=== PATIENT | female | born 1950 | race African-American/Black ===

== ENCOUNTER 2016-07-15 12:20 | Emergency (ER) | payer OTHER ==
[~2016-07-15] VITALS: Ht 162.6 cm; Wt 92.1 kg
[2016-07-15] MEDS ORDERED: ATENOLOL25 MG ORAL (12:34)
[2016-07-15] MEDS ORDERED: GLYBURIDE1.25 MG PO (12:35)
[2016-07-15] MEDS ORDERED: METFORMIN HCL500 M1 ORAL (12:35)
--- NOTE | 2016-07-15 13:07 | Emergency Room Report ---
History of Present Illness General Chief Complaint: Skin Rash/Abscess Source: Patient Present Illness HPI 66-year-old female presents emergency department complaining of pain, swelling and tenderness to the right lower jaw/gums x3 days. Patient denies trauma or fall patient denies fevers or chills. Patient denies sore throat or recent upper respiratory illness. Patient denies pain under the tongue. She denies recent dental procedures. She denies taking blood thinning medications. Denies CP, Palpitations, LOC, AMS, dizziness, Changes in Vision, Sensation, paresthesias, or a sudden severe headache. Allergies: Coded Allergies: No Known Allergies (Unverified , 07/15/16) Patient History Past Medical History: see triage record Past Surgical History: none Pertinent Family History: none Now: No Immunizations: UTD Reviewed Nursing Documentation: PMH: Agreed, PSxH: Agreed Nursing Documentation-PMH Past Medical History: No History, Except For Hx Hypertension: Yes Hx Diabetes: Yes Review of Systems All Other Systems: negative except mentioned in HPI Physical Exam Vital Signs Date Time Temp Pulse Resp B/P Pulse Ox O2 Delivery O2 Flow Rate FiO2 07/15/16 12:30 98.2 79 16 129/93 95 Room Air Sp02 EP Interpretation: reviewed, normal General Appearance: no apparent distress, alert, GCS 15, non-toxic Head: normocephalic, atraumatic Eyes: bilateral eye PERRL, bilateral eye normal inspection ENT: hearing grossly normal, normal pharynx, no angioedema, normal voice, other - right lower gum line is swollen, erythema and palpable fluctuance just below tooth number 30. negative trismus, negative sublingual swelling/ttp. Neck: full range of motion, supple/symm/no masses Respiratory: lungs clear, normal breath sounds, speaking full sentences Cardiovascular #1: regular rate, rhythm, no edema Musculoskeletal: back normal, gait/station normal, normal range of motion, non- tender Neurologic: alert, oriented x3, responsive, motor strength/tone normal, sensory intact, speech normal Psychiatric: judgement/insight normal, memory normal, mood/affect normal Skin: normal color, no rash, warm/dry, well hydrated Lymphatic: no adenopathy Procedures Incision and Drainage Incision and Drainage : Consent: Verbal Site: right lower gum line just below tooth number 30 Blade Size: 11 Wound Location: other - right lower gum line just below tooth number 30 Wound's Depth, Shape: superficial Wound Length (cm): 1 Wound Explored: contaminated - purulent discharge was expressed from the incision site. Anesthesia: other - hurricaine 20% oral spray was used. Volume Anesthetic (ccs): 1 Splint Applied?: No Sling Applied?: No Patient Tolerated: Well Complications: None Progress multiple rinses of diluted h202 solution were done both prior and post procedure. Medical Decision Making PA Attestation Dr. Rodríguez is my supervising Physician whom patient management has been discussed with. Diagnostic Impression: Primary Impression: Gum abscess ER Course Pt. presents to the ED c/o : pain, swelling, tenderness to the right lower gumline/jaw progressive x 3 days. Ddx considered but are not limited to:tooth abscess, tooth avulsion, APPLICATIONS ANALYST, ludwigs angina, cellulitis Vital signs: are WNL, pt. is afebrile H&PE are most consistent with: GUM ABSCESS- right lower gum line is swollen, erythema and palpable fluctuance just below tooth number 30. ORDERS: -none required at this time the dx is clinical. ED INTERVENTIONS: -Carlyle PO - hydrogen peroxide oral rinses - Hurricaine 20% spray. -I & D DISCHARGE: At this time pt. is stable for d/c to home. Will provide printed patient care instructions, and any necessary prescriptions. Care plan and follow up instructions have been discussed with the patient prior to discharge. Last Vital Signs Date Time Temp Pulse Resp B/P Pulse Ox O2 Delivery O2 Flow Rate FiO2 07/15/16 12:30 98.2 79 16 129/93 95 Room Air Disposition: HOME, SELF-CARE Condition: Stable Scripts Hydrocodone Bit/Acetaminophen 5-325* (NORCO 5-325 TABLET*) 1 Each Tablet 1 TAB ORAL Q6HR Y for For Pain, #5 TAB Prov: Lillie Navarro P.A. 07/15/16 Ibuprofen* (MOTRIN*) 600 Mg Tablet 600 MG ORAL THREE TIMES A DAY, #20 TAB 0 Refills Prov: Lillie Navarro P.A. 07/15/16 Amoxicillin* (AMOXIL*) 500 Mg Capsule 500 MG ORAL BID for 7 Days, #14 CAP Prov: Lillie Navarro P.A. 07/15/16 Referrals: HAMZAH COLES,REFERRING (PCP) Patient Instructions: Dental Abscess Additional Instructions: Take medications as directed. Follow up with DENTIST in 3-5 days Return sooner to ED if new symptoms occur, or current symptoms become worse. Do not drink alcohol, drive, or operate heavy machinery while taking Tylenol #3 as this may cause drowsiness. - Please note that this Emergency Department Report was dictated using [employer] spring upholsterer technology software, occasionally this can lead to erroneous entry secondary to interpretation by the dictation equipment. Lillie Navarro Jul 15, 2016 13:07
[2016-07-15] MEDS ORDERED: ACETAMINOPHEN-1 EAC1 ORAL (13:10)
[2016-07-15] MEDS ORDERED: AMOXICILLIN500 MG ORAL (13:10)
[2016-07-15] MEDS ORDERED: IBUPROFEN600 MG ORAL (13:10)
[2016-07-15] MEDS ORDERED: Hydrogen Peroxide 120ml Bottle TOPIC ONE (13:15)
[2016-07-15] MEDS ORDERED: Norco 7.5mg/325mg tab ORAL ONE (13:15)
[2016-07-15] MEDS ORDERED: Hurricaine 20% Spray ORO ONE (13:15)
[2016-07-15] MEDS ORDERED: NORCO 5-325 TA1 EAC1 ORAL (14:24)
[2016-07-15 14:40] VITALS: BP 115/73
== END 2016-07-15 14:40 | disposition home or self-care (01) ==
LOC: EMR 12:58
DX: K04.7 Periapical abscess without sinus (principal); I10 Essential (primary) hypertension; E11.9 Type 2 diabetes mellitus without complications
CPT/HCPCS: 99284

== ENCOUNTER 2017-08-22 18:11 | Emergency (ER) | payer OTHER ==
[~2017-08-22] VITALS: Ht 162.6 cm; Wt 96.2 kg
[~2017-08-22 18:11] MED LIST: ACETAMINOPHEN-1 EAC1 ORAL; AMOXICILLIN500 MG ORAL; ATENOLOL25 MG ORAL; GLYBURIDE1.25 MG PO; IBUPROFEN600 MG ORAL; METFORMIN HCL500 M1 ORAL; NORCO 5-325 TA1 EAC1 ORAL
[2017-08-22] MEDS ORDERED: Norco 5mg/325mg tab PO ONE (18:45)
--- NOTE | 2017-08-22 19:40 | Diagnostic Imaging Report ---
EXAM: XR Right Ankle Complete, 3 or More Views CLINICAL HISTORY: PAIN TECHNIQUE: Frontal, lateral and oblique views of the right ankle. COMPARISON: No relevant prior studies available. FINDINGS: Bones/joints: Unremarkable. No acute fracture. No dislocation. Soft tissues: Unremarkable. IMPRESSION: Normal right ankle x-rays.
--- NOTE | 2017-08-22 19:44 | Diagnostic Imaging Report ---
EXAM: XR Right Foot Complete, 3 or More Views CLINICAL HISTORY: PAIN TECHNIQUE: Frontal, lateral and oblique views of the right foot. COMPARISON: No relevant prior studies available. FINDINGS: Bones/joints: Hallux valgus deformity. Osteopenia. Degenerative changes. No acute fracture. No dislocation. Soft tissues: Unremarkable. No radiopaque foreign body. IMPRESSION: No acute findings.
[2017-08-22] MEDS ORDERED: TYLENOL EXTRA500 MG ORAL (19:55)
[2017-08-22 20:15] VITALS: BP 111/71
[2017-08-22 20:20] VITALS: BP 111/71
--- NOTE | 2017-08-22 21:00 | Emergency Room Report ---
History of Present Illness General Chief Complaint: Lower Extremity Injury Source: Patient Present Illness HPI 67-year-old female presents ED complaining of left ankle pain status post trip and fall. States that earlier this week she tripped while walking down the stairs and twisted her left ankle. Pain is throbbing, 7 out of 10, nonradiating. Difficulty bearing weight. Denies any other injuries. No other aggravating or relieving factors. Denies any other associated symptoms Allergies: Coded Allergies: No Known Allergies (Unverified , 07/15/16) Patient History Past Medical History: DM, HTN, COPD Pertinent Family History: none Social History: Denies: smoking, alcohol use, drug use Now: No Immunizations: UTD Reviewed Nursing Documentation: PMH: Agreed; PSxH: Agreed Nursing Documentation-PMH Hx Hypertension: Yes Hx COPD: Yes - bronchitis Hx Diabetes: Yes Review of Systems All Other Systems: negative except mentioned in HPI Physical Exam Vital Signs Date Time Temp Pulse Resp B/P (MAP) Pulse Ox O2 Delivery O2 Flow Rate FiO2 08/22/17 18:26 97.9 95 16 158/84 92 Room Air 97.9 Sp02 EP Interpretation: reviewed, normal General Appearance: no apparent distress, alert, GCS 15, non-toxic Head: normocephalic Eyes: bilateral eye normal inspection, bilateral eye PERRL ENT: normal ENT inspection Neck: normal inspection Respiratory: normal inspection Cardiovascular #1: normal inspection Gastrointestinal: normal inspection Rectal: deferred Genitourinary: no CVA tenderness Musculoskeletal: tender - L ankle Neurologic: alert, oriented x3, responsive, motor strength/tone normal, sensory intact, speech normal Psychiatric: normal inspection Skin: normal inspection Lymphatic: normal inspection Procedures Splinting Splinting : Consent: Verbal Pre-Made Type: ALEKSANDR wrap Pre-Proc Neuro Vasc Exam: normal Post-Proc Neuro Vasc Exam: normal Patient Tolerated: Well Complications: None Medical Decision Making Diagnostic Impression: Primary Impression: Ankle sprain Qualified Codes: S93.402A - Sprain of unspecified ligament of left ankle, initial encounter ER Course Hospital Course 67-year-old F presents to ED complaining of L ankle pain s/p trip and fall Differential diagnoses include: Fracture, dislocation, sprain, contusion Clinical course Patient placed on stretcher. After initial history and physical, I ordered pain medications and Xrays of L foot/ankle Xrays read shows no acute fracture/dislocation. placed in aleksandr wrap, given crutches Diagnosis - ankle sprain Stable and discharged to home with prescription for Tylenol. apply ice, keep elevated. weight bear as tolerated. Followup with PMD. Return to ED if symptoms recur or worsen Other X-Ray Diagnostic Results Other X-Ray Diagnostic Results #1: X-Ray ordered: L ankle # of Views/Limited Vs Complete: 3 View Indication: Pain EP Interpretation: Yes Interpretation: no dislocation, no soft tissue swelling, no fractures Impression: No acute disease Electronically Signed by: Electronically signed by Don Guadalupe MD Other X-Ray Diagnostic Results #2: X-Ray ordered: L foot # of Views/Limited Vs Complete: 3 View Indication: Pain EP Interpretation: Yes Interpretation: no dislocation, no soft tissue swelling, no fractures Impression: No acute disease Electronically Signed by: Electronically signed by Don Guadalupe MD Last Vital Signs Date Time Temp Pulse Resp B/P (MAP) Pulse Ox O2 Delivery O2 Flow Rate FiO2 08/22/17 20:20 98.2 91 17 111/71 99 Room Air 98.2 Status: improved Disposition: HOME, SELF-CARE Condition: Stable Scripts Acetaminophen* (TYLENOL EXTRA STRENGTH*) 500 Mg Tablet 500 MG ORAL Q8H PRN for Prn Headache/Temp > 101, #30 TAB 0 Refills Prov: Don Guadalupe MD 08/22/17 Patient Instructions: Ankle Sprain Don Guadalupe MD Aug 22, 2017 21:00
== END 2017-08-22 20:20 | disposition home or self-care (01) ==
LOC: EMR 19:00
DX: S93.402A Sprain of unspecified ligament of left ankle, initial encounter (principal); W10.9XXA Fall (on) (from) unspecified stairs and steps, initial encounter; Y92.009 Unspecified place in unspecified non-institutional (private) residence as the place of occurrence of the external cause; E11.9 Type 2 diabetes mellitus without complications; I10 Essential (primary) hypertension; J44.9 Chronic obstructive pulmonary disease, unspecified
CPT/HCPCS: 99284